=== PATIENT | female | born 1990 | race Caucasian/White ===

== ENCOUNTER → 2017-06-07 17:14 | Emergency (ER) | payer SELFPAY ==
[~2017-06-07 17:14] MED LIST: Meclizine TAB* 12.5 MG PO ONE; Neomyc/Polym/HC 1% OTIC SUSP* **OTIC ONE; Neomyc/Polym/HC 1% OTIC SUSP* **OTIC RIGHT EAR SCH
[2017-06-07 17:24] VITALS: BP 114/60
--- NOTE | 2017-06-07 19:00 | ED ---
Jyothi Cabral Emily, scribed for Jose Prince MD on 06/07/17 at 1741 . Dizziness - HPI Summary HPI Summary: This patient is a 27 year old F presenting to [facility] with a chief complaint of dizziness that began 2 days ago. The patient rates the pain 0/10 in severity. Symptoms aggravated by nothing. Symptoms alleviated by nothing. Patient reports vomiting, fever, and inability to hear out of R ear. Patient denies drainage from R ear. Pt reports entire L side of face being swollen [employer]. - History Of Current Complaint Chief Complaint: EDDizziness Stated Complaint: POSSIBLE VERTIGO Time Seen by Provider: 06/07/17 17:34 Hx Obtained From: Patient Onset/Duration: Still Present Timing: Days Severity Initially: Mild Severity Currently: Mild Character: Room Spinning Aggravating Factor(s): Nothing Alleviating Factor(s): Nothing Associated Signs And Symptoms: Positive: Other: - Positive vomiting, fever, and inability to hear out of R ear - Allergies/Home Medications Allergies/Adverse Reactions: Allergies Allergy/AdvReac Type Severity Reaction Status Date / Time Penicillins [PCN] Allergy Severe Rash Verified 02/21/16 08:20 bee sting Allergy Swelling Uncoded 02/21/16 08:20 PMH/Surg Hx/FS Hx/Imm Hx Previously Healthy: No Endocrine/Hematology History: Denies: Hx Diabetes, Hx Thyroid Disease Cardiovascular History: Denies: Hx Hypertension Respiratory History: Denies: Hx Asthma, Hx Chronic Obstructive Pulmonary Disease (COPD) GI History: Denies: Hx Ulcer, Other GI Disorders History: Denies: Other Problems/Disorders Infectious Disease History: No Infectious Disease History: Denies: Hx Clostridium Difficile, Hx Hepatitis, Hx Human Immunodeficiency Virus (HIV), Hx of Known/Suspected MRSA, Hx Shingles, Hx Tuberculosis, Traveled Outside the [place] in Last 30 Days - Family History Known Family History: Positive: None - Social History Occupation: Unemployed Lives: Alone Alcohol Use: None Alcohol Amount: Part. 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 Negative drainage from R ear Positive: Vomiting Neurological: Other - Dizziness All Other Systems Reviewed And Are Negative: Yes Physical Exam - Summary Physical Exam Summary: VITAL SIGNS: Reviewed. GENERAL: ~Patient is a well-developed and nourished (MALE OR FEMALE) who is lying comfortable in the stretcher. ~Patient is not in any acute respiratory distress. HEAD AND FACE: No signs of trauma. ~No ecchymosis, hematomas or skull depressions. No sinus tenderness. EYES: PERRLA, EOMI x 2, No injected conjunctiva, no nystagmus. EARS: Hearing grossly intact. Swelling in R ear canal with no discharge. TM is nml. MOUTH: Positive dental decay. NECK: Supple, trachea is midline, no adenopathy, no JVD, no carotid bruit, no c- spine tenderness, neck with full ROM. CHEST: Symmetric, no tenderness at palpation LUNGS: Clear to auscultation bilaterally. No wheezing or crackles. CVS: Regular rate and rhythm, S1 and S2 present, no murmurs or gallops appreciated. ABDOMEN: Soft, non-tender. No signs of distention. No rebound no guarding, and no masses palpated. Bowel sounds are normal. EXTREMITIES: FROM in all major joints, no edema, no cyanosis or clubbing. NEURO: Alert and oriented x 3. No acute neurological deficits. Speech is normal and follows commands. SKIN: Dry and warm Triage Information Reviewed: Yes Vital Signs On Initial Exam: Initial Vitals Temp Pulse Resp BP Pulse Ox 97.3 F 63 16 114/60 100 06/07/17 17:21 06/07/17 17:21 06/07/17 17:21 06/07/17 17:21 06/07/17 17:21 Vital Signs Reviewed: Yes - Patricia Coma Scale Coma Scale Total: 15 Diagnostics - Vital Signs Vital Signs Temp Pulse Resp BP Pulse Ox 06/07/17 17:21 97.3 F 63 16 114/60 100 - Laboratory Lab Statement: Any lab studies that have been ordered have been reviewed, and results considered in the medical decision making process. Dizzy Course/Dx - Course Assessment/Plan: This patient is a 27 year old F presenting to [facility] with a chief complaint of dizziness that began 2 days ago. The patient rates the pain 0 /10 in severity. Symptoms aggravated by nothing. Symptoms alleviated by nothing. Patient reports vomiting, fever, and inability to hear out of R ear. Patient denies drainage from R ear. Pt reports entire L side of face being swollen [employer]. P/E : reveals a right OE and positional vertigo. Patient has no other complaints. She was given Meclizine for dizziness and Cortisporin for OE. Patient declined any further w/u therefore he will be discharged home with F/u OF PCP. At this point I discussed all the findings and test results with the patient and patients parents. They were instructed to return to the emergency room immediately if any of the symptoms return or worsens. They understand and agree. Neurological exam before discharge: Patient is alert and oriented x 3. No acute neurological deficits. Patient vital signs are stable. Patient is to follow up with the therapy technician in the next 2 3 days. They understand and agree. Plan of care was discussed with the patient and patient understands and agrees with the plan of care. All questions were answered at patient satisfaction. There were no further complaints or concerns. - Diagnoses Differential Diagnosis/HQI/PQRI: Labyrinthitis, Meniere's Disease, Other - BPV Provider Diagnoses: BPV (benign positional vertigo), Otitis externa Discharge - Discharge Plan Condition: Stable Disposition: HOME Prescriptions: Meclizine TAB* [Antivert 12.5 TAB*] 25 mg PO TID PRN #40 tab PRN Reason: Dizziness Patient Education Materials: Vertigo (ED) Referrals: [facility] [place] [facility]IAN REFERRAL [Outside] Additional Instructions: RETURN TO THE EMERGENCY DEPARTMENT FOR CHANGING OR WORSENING SYMPTOMS. The documentation as recorded by the Jyothi busch Emily accurately reflects the service I personally performed and the decisions made by , Jose Prince MD.
== END | disposition home or self-care (01) ==
LOC: ED 17:14
DX: H81.10 Benign paroxysmal vertigo, unspecified ear (principal); H60.91 Unspecified otitis externa, right ear; R11.10 Vomiting, unspecified; R50.9 Fever, unspecified; Z88.0 Allergy status to penicillin; Z91.030 Bee allergy status; F17.210 Nicotine dependence, cigarettes, uncomplicated
CPT/HCPCS: 99282; A9270-GY

== ENCOUNTER 2018-11-01 19:12 | Emergency (ER) | payer SELFPAY ==
[2018-11-01 19:23] VITALS: BP 118/95
--- NOTE | 2018-11-01 20:01 | UC ---
Abdominal Pain Female HPI - HPI Summary HPI Summary: 28-year-old woman comes in with a chief complaint of 2 days of pelvic cramping and vaginal bleeding. Patient reports her last menstrual period was at the end of August 2018. She reports being . She does not know her blood type. She has been in the past. - History of Current Complaint Chief Complaint: UCAbdominalPain Stated Complaint: ABDOMINAL COMPLAINT Time Seen by Provider: 11/01/18 19:46 Hx Last Menstrual Period: [id number] Pain Intensity: 4 Allergies/Adverse Reactions: Allergies Allergy/AdvReac Type Severity Reaction Status Date / Time Penicillins Allergy Rash Verified 11/01/18 19:24 bee sting Allergy Swelling Uncoded 11/01/18 19:24 PMH/Surg Hx/FS Hx/Imm Hx Previously Healthy: Yes - BLOOD TYPE O POSITIVE - Surgical History Surgical History: Yes Surgery Procedure, Year, and Place: c-sec X2 - Family History Known Family History: Positive: None - Social History Alcohol Use: None Alcohol Amount: Part. in [employer] program Substance Use Type: None Substance Use Comment - Amount & Last Used: Pt tested positive for Benzo's which triggered [facility] placement Smoking Status (MU): Light Every Day Tobacco Smoker Type: Cigarettes Length of Time of Smoking/Using Tobacco: since age 18 Have You Smoked in the Last Year: Yes When Did the Patient Quit Smoking/Using Tobacco: 3 months ago Household Exposure Type: Cigarettes - Immunization History Most Recent Influenza Vaccination: unknown Most Recent Tetanus Shot: unknown Most Recent Pneumonia Vaccination: never Review of Systems All Other Systems Reviewed And Are Negative: Yes Constitutional: Positive: Negative Skin: Positive: Negative Eyes: Positive: Negative ENT: Positive: Negative Respiratory: Positive: Negative Cardiovascular: Positive: Negative Gastrointestinal: Positive: Other - SEE HPI Motor: Positive: Negative Neurovascular: Positive: Negative Musculoskeletal: Positive: Negative Neurological: Positive: Negative Psychological: Positive: Negative Is Patient Immunocompromised?: No Physical Exam Triage Information Reviewed: Yes Appearance: Well-Appearing, No Pain Distress, Well-Nourished Vital Signs: Initial Vital Signs Temp 97.8 F 11/01/18 19:19 Pulse 69 11/01/18 19:19 Resp 16 11/01/18 19:19 BP 118/95 11/01/18 19:19 Pulse Ox 100 11/01/18 19:19 Vital Signs Reviewed: Yes Eye Exam: Normal Eyes: Positive: Conjunctiva Clear Neck exam: Normal Neck: Positive: Supple Respiratory: Positive: Lungs clear, Normal breath sounds, No respiratory distress Cardiovascular: Positive: RRR Abdomen Description: Positive: Soft, Other: - MILD SUPRAPUBIC ANF LLQ TENDERNESS TO PALPATION Bowel Sounds: Positive: Present Musculoskeletal Exam: Normal Musculoskeletal: Positive: Strength Intact, ROM Intact Neurological Exam: Normal Neurological: Positive: Alert, Muscle Tone Normal Psychological Exam: Normal Psychological: Positive: Normal Response To Family, Age Appropriate Behavior Skin Exam: Normal Abd Pain Female Course/Dx - Course Course Of Treatment: Patient let me know that she needed to leave prior to the final reading of the ultrasound. Prior to the radiologist final read , it appears that the fetus is 7 weeks old and has a heartbeat. Patient's blood type is O+. I ordered a serum quantitative hCG which the patient declined. She has leukocytes in her urine and therefore we will treat for UTI and early . Patient states her follow up with her [facility] tomorrow. Patient is to go the emergency department with any worsening of her condition or questions or concerns. - Differential Dx/Diagnosis Provider Diagnosis: Threatened in first trimester, UTI (urinary tract infection) Discharge - Sign-Out/Discharge Documenting (check all that apply): Patient Departure All imaging exams completed and their final reports reviewed: No Studies - Discharge Plan Condition: Stable Disposition: HOME Prescriptions: Nitrofurantoin Monohyd/M-Cryst [Macrobid 100 mg Capsule] 100 mg PO BID #12 cap Patient Education Materials: Threatened Miscarriage (ED), Urinary Tract Infection in (ED) Referrals: [facility] [Provider Group] Additional Instructions: FOLLOW UP WITH YOUR HEAD BU[facility]ER TOMORROW. GO TO THE EMERGENCY DEPARTMENT FOR ANY WORSENING OF YOUR CONDITION OR CONCERNS. - Billing Disposition and Condition Condition: STABLE Disposition: Home
[2018-11-01] MEDS ORDERED: Mupirocin 2% OINT* TUBE TOPICAL ONE (20:55)
[2018-11-01] MEDS ORDERED: Nitrofurantoin Macrocrystals* 50 MG CAP PO ONE ×2 (21:05)
== END 2018-11-01 21:12 | disposition home or self-care (01) ==
LOC: UCEAST 19:12
DX: O20.0 Threatened abortion (principal); O23.41 Unspecified infection of urinary tract in pregnancy, first trimester; F17.210 Nicotine dependence, cigarettes, uncomplicated; Z88.0 Allergy status to penicillin; Z91.030 Bee allergy status; Z3A.01 Less than 8 weeks gestation of pregnancy
CPT/HCPCS: 76801; 81003; 87086; 99212; A9270-GY; G0463